=== PATIENT | female | born 1950 | race Caucasian/White ===

== ENCOUNTER 2021-05-03 10:10 | Outpatient (RCR) | payer MEDICARE, SELFPAY ==
[2021-05-03 10:45] VITALS: BP 162/52; PULSE 87; TEMP 36.7; BMI 35.9
[2021-05-03 11:25] VITALS: BMI 35.9
--- NOTE | 2021-05-03 19:15 | HP.PCM_ITS ---
History of Present Illness Date of Service: 05/03/21 Chief Complaint: Ulceration of the left thigh History of Wound: This is morbidly obese 71-year-old female who presents with a small ulceration on the upper medial left thigh. Its etiology is uncertain. However, it has failed to heal. The patient is of limited mobility. Upon initial examination, patient was noted to have a very large panniculus, which overlies the small ulceration on the left medial thigh. The patient has been using a variety of topical agents recently, including mupirocin, nystatin, and triamcinolone. 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 The patient is on supplemental oxygen. She has multiple pre-existing medical problems, listed below. [facility] Medical History (Updated 05/03/21 @ 19:[address] Ancelmo Overton MD) Dependence on supplemental oxygen History of uterine cancer Leg swelling Leg ulcer, left Orthopnea Home Medications Omeprazole [Prilosec] 40 mg PO DAILY 03/31/13 [History Last Taken Unknown] aspirin 81 mg PO DAILY@0800 03/31/13 [History Last Taken Unknown] levothyroxine 50 mcg PO DAILY 03/31/13 [History Last Taken Unknown] linagliptin [Tradjenta] 5 mg PO DAILY 03/31/13 [History Last Taken Unknown] metoprolol tartrate 25 mg PO BID 03/31/13 [History Last Taken Unknown] sdspeukz-yss-TO-lycopen-lutein [Centrum Silver] 1 ea PO DAILY 03/31/13 [History Last Taken Unknown] paroxetine HCl [Paxil] 40 mg PO DAILY 03/31/13 [History Last Taken Unknown] pravastatin 80 mg PO DAILY 03/31/13 [History Last Taken Unknown] sennosides-docusate sodium [Stool Softener-Stimulant Laxat] 1 tab PO BID 03/31/13 [History Last Taken Unknown] Levemir FlexTouch U-100 Insuln 20 - 30 units SQ BID #20 04/03/13 [Rx Last Taken Unknown] buspirone 15 mg PO BID #14 04/03/13 [Rx Last Taken Unknown] furosemide 40 mg PO DAILY #30 tablet 04/03/13 [Rx Last Taken Unknown] hydrocodone-acetaminophen 1 tab PO Q4H PRN PRN #20 tablet 04/03/13 [Rx Last Taken Unknown] magnesium oxide 400 mg PO BID #20 tablet 04/03/13 [Rx Last Taken Unknown] potassium chloride [K-Dur] 20 meq PO DAILY #20 tablet 04/03/13 [Rx Last Taken Unknown] metformin 500 mg PO BID 05/03/21 [History Last Taken Unknown] Allergy/AdvReac Type Severity Reaction Status Date / Time Sulfa (Sulfonamide Allergy Mild Hives Verified 05/03/21 11:23 Antibiotics) Penicillins Allergy Rash Verified 03/31/13 13:55 zolpidem tartrate AdvReac Other Verified 03/31/13 14:03 [From Ambien] SODIUM PENTATHAL Allergy Anaphylaxis Uncoded 03/31/13 13:55 Surgical History (Updated 05/03/21 @ 19:[address] Ancelmo Overton MD) Hx of CABG Social History Smoking Status: Former smoker Vital Signs Vital Signs Vital Signs: 05/03/21 10:45 Temperature 98.1 F Temperature Source Temporal Pulse Rate 87 Blood Pressure 162/52 H Blood Pressure Mean 88 Blood Pressure Source Monitor Weight Weight: 216 lb Body Mass Index (BMI) 35.9 Physical Exam Const alert, oriented x3, no apparent distress and well nourished Constitutional Narrative: The patient is morbidly obese. General Appearance: cooperative, well developed and disheveled Orientation / Consciousness: awake, oriented to person, oriented to place and oriented to time HEENT normocephalic and head/scalp atraumatic Head and Scalp: normal to inspection, normocephalic and atraumatic External Ear: external ears normal Eyes PERRL and EOMs intact bilaterally General Eye: normal appearance of both eyes Resp normal respiratory effort, normal air movement, no retractions and no use of accessory muscles Effort and Inspection: able to speak in complete sentences GI GI Narrative: Patient has a very large abdominal panniculus which overlaps her groins and upper thighs. Extremity no calf tenderness General Extremity: Negative for clubbing or cyanosis Skin Wound Narrative: A small open ulceration is noted on the proximal, medial left thigh. Dimensions are documented elsewhere. It is only several millimeters in diameter. There is no sign of infection or cellulitis. Neuro oriented x3, CN's II-XII intact bilaterally and moves all extremities Sensorium / Orientation: awake, alert, oriented to person, oriented to place and oriented to time Psych Appearance: grossly normal and appropriate Attitude: calm Activity / Motor Behavior: appropriate eye contact Speech: normal speech Mood & Affect: euthymic mood Thought Process: normal thought process Thought Content: normal thought content Attention / Concentration: attention grossly intact Debridement Note Debridement Note No debridement was completed: No debridement was completed today Post-Debridement Measurements and Additional Note: Post-Debridement Measurements/Treatment - Nurse 1 - General Ulcer Assessment Start: 05/03/21 10:45 Freq: Status: Active Protocol: FERCHO Activity Type Activity Date Activity User E-Sign Co-Sign Detail Recorded Client Recorded Date Recorded By Document 05/03/21 10:45 THAO [id number] 05/03/21 11:07 THAO Document 05/03/21 11:25 THAO [id number] 05/03/21 11:26 AK 05/03/21 05/03/21 10:45 11:25 - Today's Visit Information Type of service Initial Visit Arrival Mode Ambulatory, Walker Patient Identification Verified (Name & Yes ) Patient Requires Transmission-Based No Precautions Safety Precautions NA Height and Weight Height 5 ft 5 in Weight 216 lb Weight in Pounds 216.0 lbs Body Mass Index (BMI) 35.9 35.9 BMI Classification Obese Obese BSA - [place] 2.04 Vital Signs Temperature (97.8 F-99.1 F) 98.1 F Temperature Source Temporal Pulse Rate (60-100) 87 Pulse Location Monitor Blood Pressure (90/60-120/80) 162/52 H Blood Pressure Mean 88 Source Monitor History Since Last Visit- (Skip if this is Patient's initial visit) Left Footwear Regular Shoe Right Footwear Regular Shoe Communication Assessment Preferred language Khmer Applications Intern Required No Able to Read Yes Able to Write Yes Right Hearing Abillity Normal Visual Assistive Devices None - Nurse 1 - General Ulcer Measurement Start: 05/03/21 10:45 Freq: Status: Active Protocol: Activity Type Activity Date Activity User E-Sign Co-Sign Detail Recorded Client Recorded Date Recorded By Document 05/03/21 10:45 THAO [id number] 05/03/21 11:07 AK 05/03/21 10:45 Wound Center Nurse 1 #1 left inner thigh -Combined with other wound No -Current Size (cm) - Length 0.3 -Current Size (cm) - Width 0.3 -Current Size (cm) - Depth 0.1 -Total Square Cm 0.09 -Date of Last Picture (Recall this 05/03/21 field) -Photo Taken Yes -Tunneling No -Undermining/Tunneling No -Circular Undermining No -Exudate Type Serous -Wound Margin Distinct, Outline Attached -Granulation Amt None Present (0 %) -Granulation Quality N/A -Slough/Fibrin No -Necrosis Amt None Present (0 %) -Structure Exposed N/A -Texture (Opal-wound Skin Appearance) Assessed, Scarring -Moisture (Opal-wound Skin Appearance) No Abnormality, Assessed -Color (Opal-wound Skin Appearance) No Abnormality, Assessed -Temperature (Opal-wound Skin No Abnormality Appearance) (Pt Warm) -Tenderness on Palpation (Opal-wound No Skin Appearance) -Ulcer Cleansing Rinsed/ Irrigated with Saline -Foul Odor after Cleansing No -Anesthetic Used 5% Lidocaine Gel WC - Nurse 2 - General Ulcer CM Notes Start: 05/03/21 10:45 Freq: Status: Active Protocol: Activity Type Activity Date Activity User E-Sign Co-Sign Detail Recorded Client Recorded Date Recorded By Document 05/03/21 13:54 PL [id number] 05/03/21 13:55 PL 05/03/21 13:54 Wound Center Nurse 2 -Procedure Performed No -Post Debridement (cm) - Length 0.3 -Post Debridement (cm) - Width 0.3 -Post Debridement (cm) - Depth 0.1 -Total Square (Post) (cm) 0.09 WC - Nurse 3 - General Ulcer D/C NN Start: 05/03/21 10:45 Freq: Status: Active Protocol: Activity Type Activity Date Activity User E-Sign Co-Sign Detail Recorded Client Recorded Date Recorded By Document 05/03/21 11:43 DL [id number] 05/03/21 11:45 DL 05/03/21 11:43 Wound Care Nurse 3 -Ulcer Cleansing Rinsed/ Irrigated with Saline -Foul Odor after Cleansing No -Primary Dressing Applied Aquacel Extra -Primary Dressing Covered/Secured with Dry Gauze, Secured with Tape -Aquacel Extra 1 Treatment Response Procedure Tolerated Well Pain Scale: 0-10 Numeric Is Patient Pain Free? Yes WC - Visit Discharge Discharge Condition Stable Ambulatory Status Ambulatory, Walker Notes: dressing applied by Zarina Vazquez today Assessment/Plan Assessment/Plan (1) Obesity, Class III, BMI 40-49.9 (morbid obesity): CODE(S): E66.01 - Morbid (severe) obesity due to excess calories (2) GERD (gastroesophageal reflux disease): CODE(S): K21.9 - Gastro-esophageal reflux disease without esophagitis (3) Dyslipidemia: CODE(S): E78.5 - Hyperlipidemia, unspecified (4) HTN (hypertension): CODE(S): I10 - Essential (primary) hypertension (5) Hypothyroidism: CODE(S): E03.9 - Hypothyroidism, unspecified (6) CAD (coronary artery disease) of artery bypass graft: CODE(S): I25.810 - Atherosclerosis of coronary artery bypass graft(s) without angina pectoris (7) Diabetes mellitus type 2, controlled: CODE(S): E11.9 - Type 2 diabetes mellitus without complications (8) CHF (congestive heart failure): CODE(S): I50.9 - Heart failure, unspecified (9) History of uterine cancer: CODE(S): Z85.42 - Personal history of malignant neoplasm of other parts of uterus (10) Orthopnea: CODE(S): R06.01 - Orthopnea (11) Leg swelling: CODE(S): M79.89 - Other specified soft tissue disorders (12) Hx of CABG: CODE(S): Z95.1 - Presence of aortocoronary bypass graft (13) Dependence on supplemental oxygen: CODE(S): Z99.81 - Dependence on supplemental oxygen (14) Leg ulcer, left: CODE(S): L97.929 - Non-pressure chronic ulcer of unspecified part of left lower leg with unspecified severity PLAN: This is a 71-year-old morbidly obese diabetic female with a host of pre-existing medical problems. She presents with a small ulceration on the proximal portion of her left medial thigh. By appearances, the ulceration does not look to be particularly worrisome. However, there are several factors which are of concern. First, the patient is diabetic. This may present issues related to healing and infection. In addition, the patient has a history of MRSA. However, the appearance of her small left medial thigh ulceration does not suggest infection at this time. There is no drainage, fluctuance, or erythema. Another significant factor is that the patient has a very large panniculus, which appears to overlie the ulceration on her left medial thigh. A lengthy discussion has been undertaken with the patient and with her daughter who are at the bedside. There is concern that the patient's overlying panniculus will create an environment which is unfavorable to wound healing. [place] heat and perspiration is a favorable condition for bacterial growth and issues complicating wound healing, such as maceration. In effect, the overlying panniculus is similar to an intertriginous zone such as the armpit or groin, unfavorable to wound healing. Therefore, we have discussed countermeasures to the accumulation of body and perspiration in this area. This can be accomplished by a variety of measures these include positioning, with efforts to avoid the patient's panniculus overlying the site of the ulceration. We are to use Aquacel topically, with gauze patient has been instructed to replace the Aquacel and gauze as necessary, particularly if moisture accumulates. Optimizing the patient's nutrition has been suggested. Optimal glycemic control has also been recommended. The patient is known to be anemic, with a hemoglobin of 7.9. She is currently undergoing evaluation by her other physicians in this regard, including assessment of gastrointestinal sources of blood loss. The anemia is unfavorable to wound healing, and management will be deferred to the patient's other physicians. The patient is to return in 1 week for reevaluation. Total time: 65 minutes
== END 2021-05-10 23:59 ==
LOC: WC 10:10
PROVIDERS: PCP Nurse Practitioner Family; Visit Provider Surgery
DX: E11.621 Type 2 diabetes mellitus with foot ulcer (principal); L97.129 Non-pressure chronic ulcer of left thigh with unspecified severity; M79.89 Other specified soft tissue disorders; R06.01 Orthopnea; E66.01 Morbid (severe) obesity due to excess calories; K21.9 Gastro-esophageal reflux disease without esophagitis; E78.5 Hyperlipidemia, unspecified; E03.9 Hypothyroidism, unspecified; I25.10 Atherosclerotic heart disease of native coronary artery without angina pectoris; I11.0 Hypertensive heart disease with heart failure; I50.9 Heart failure, unspecified; Z99.81 Dependence on supplemental oxygen; Z95.1 Presence of aortocoronary bypass graft; Z85.42 Personal history of malignant neoplasm of other parts of uterus; Z79.4 Long term (current) use of insulin; Z79.82 Long term (current) use of aspirin; Z86.14 Personal history of Methicillin resistant Staphylococcus aureus infection; Z87.891 Personal history of nicotine dependence
CPT/HCPCS: 99213; G0463